=== PATIENT | female | born 1980 | race Caucasian/White ===

== ENCOUNTER 2023-07-21 13:57 | Emergency (ER) | payer MEDICAID ==
[~2023-07-21] VITALS: Ht 162.6 cm; Wt 91.9 kg
[2023-07-21 14:21] VITALS: BP 96/68; PULSE 109; RESP 20; TEMP 97.8; O2SAT 99
[2023-07-21] MEDS ORDERED: KETOROLAC 30 MG/ML VIAL IM ONE (15:25)
[2023-07-21] MEDS ORDERED: LIDOCAINE 5% 1 EA PATCH TP ONE (15:25)
[2023-07-21] MEDS ORDERED: CYCLOBENZAPRINE 10 MG TAB PO ONE (15:25)
[2023-07-21] MEDS ORDERED: LID5T TP (16:52)
[2023-07-21] MEDS ORDERED: IBUP-2213 PO (16:52)
[2023-07-21] MEDS ORDERED: CYCL-711 PO (16:52)
[2023-07-21 17:09] VITALS: BP 96/68; PULSE 109; RESP 20; TEMP 97.8; O2SAT 99
== END 2023-07-21 17:08 | disposition home or self-care (01) ==
LOC: MED 13:57
DX: S39.012A Strain of muscle, fascia and tendon of lower back, initial encounter (principal); M54.42 Lumbago with sciatica, left side; E11.9 Type 2 diabetes mellitus without complications; I10 Essential (primary) hypertension; Z79.899 Other long term (current) drug therapy; Z79.1 Long term (current) use of non-steroidal anti-inflammatories (NSAID); X50.0XXA Overexertion from strenuous movement or load, initial encounter; Y92.89 Other specified places as the place of occurrence of the external cause; Y93.89 Activity, other specified; Y99.8 Other external cause status
CPT/HCPCS: 96372; 99283; J1885